=== PATIENT | female | born 1975 ===

== ENCOUNTER 2018-10-23 08:44 | Emergency (ER) | payer OTHER ==
[~2018-10-23] VITALS: Ht 162.6 cm; Wt 83.9 kg
[~2018-10-23 08:44] MED LIST: HYZAAR 50-12.1 UDTAB PO
[2018-10-23] MEDS ORDERED: TUSSI PRES-B L120 M1 PO (11:51)
[2018-10-23] MEDS ORDERED: ZITHROMAX TRI-500 MG PO (11:51)
[2018-10-23] MEDS ORDERED: CLARITIN-D 121 EACH PO (11:51)
== END 2018-10-23 12:41 | disposition home or self-care (01) ==
LOC: ER 08:44
DX: B34.9 Viral infection, unspecified (principal)